=== PATIENT | female | born 1980 | race Caucasian/White ===

== ENCOUNTER 2019-07-10 13:32 | Emergency (ER) | payer MEDICAID ==
[~2019-07-10] VITALS: Ht 165.1 cm; Wt 71.7 kg
--- NOTE | 2019-07-10 13:40 | NUR ---
ERMD at bedside for MSE
--- NOTE | 2019-07-10 13:40 | NUR ---
pt ambulated with steady gait. A&Ox4. c/o SOB on and off x2 wks. has gotten worse last night per pt. wheezing noted upon auscultation, O2 sat at 95% on RA. speech clear and able to make needs known / follow commands. fall precautions implemented per protocol. Bed low, s/r upx2.
[2019-07-10] MEDS ORDERED: IPRATROPIUM BROMIDE 0.5 MG/2.5 ML NEBU NEB ONE ×3 (13:45→15:15)
[2019-07-10] MEDS ORDERED: predniSONE 10 MG TABLET PO ONE (13:45)
[2019-07-10] MEDS ORDERED: ALBUTEROL SULFATE 2.5 MG/3 ML NEBU NEB ONE ×3 (13:45→15:15)
[2019-07-10] MEDS ORDERED: predniSONE 10 MG TABLET ONE (13:46)
[2019-07-10] MEDS ORDERED: IPRATROPIUM BROMIDE 0.5 MG/2.5 ML NEBU ONE ×3 (13:47→15:04)
[2019-07-10] MEDS ORDERED: ALBUTEROL SULFATE 2.5 MG/3 ML NEBU ONE ×4 (13:47→15:04)
--- NOTE | 2019-07-10 14:53 | NUR ---
ra sat 93%, pt expressing sob. o2 via nc placed , sat improved to 97%.
--- NOTE | 2019-07-10 15:52 | NUR ---
Patient does not wish to proceed with medical care recommended by Dr. Kiara magallon). Patient given information related to possible complications, up to and including , which could occur as a result of leaving the hospital at this time. Patient verbalizes understanding of risks involved due to leaving against medical advice. Patient has signed AMA form.
[2019-07-10 16:10] VITALS: BP 129/89
== END 2019-07-10 16:00 | disposition left against medical advice (07) ==
LOC: ER 13:32
DX: J45.901 Unspecified asthma with (acute) exacerbation (principal); F17.200 Nicotine dependence, unspecified, uncomplicated; Z88.0 Allergy status to penicillin
CPT/HCPCS: 71045; 94640 ×2; 99285; J7512; A4663; J3590

== ENCOUNTER 2023-09-25 14:23 | Emergency (ER) | payer SELFPAY ==
[~2023-09-25] VITALS: Ht 162.6 cm; Wt 68.0 kg
[2023-09-25] MEDS ORDERED: IPRATROPIUM BROMIDE 0.5 MG/2.5 ML NEBU NEB ONE (14:45)
[2023-09-25] MEDS ORDERED: MAGNESIUM SULFATE 2 GM in IV DEXTROSE 5% 100 ML IV ONE (14:45)
[2023-09-25] MEDS ORDERED: ALBUTEROL SULFATE 2.5 MG/3 ML NEBU NEB ONE ×2 (14:45→16:45)
[2023-09-25] MEDS ORDERED: IV NORMAL SALINE 1000 ML BAG IV ONE (14:45)
[2023-09-25] MEDS ORDERED: methylPREDNISolone SOD SUCC 125 MG/2 ML VIAL IV ONE (14:45)
[2023-09-25] MEDS ORDERED: ALBUTEROL SULFATE 2.5 MG/3 ML NEBU ONE ×2 (14:48→16:42)
[2023-09-25] MEDS ORDERED: IPRATROPIUM BROMIDE 0.5 MG/2.5 ML NEBU ONE (14:48)
[2023-09-25 14:50] VITALS: O2SAT 96
[2023-09-25] MEDS ORDERED: MAGNESIUM SULFATE/D5W 200 ML ONE (15:01)
[2023-09-25] MEDS ORDERED: methylPREDNISolone SOD SUCC 125 MG/2 ML VIAL ONE (15:01)
[2023-09-25 15:12] LABS: BASOPHILS # (AUTO) 0.1 K/UL (0.0-0.2); BASOPHILS % (AUTO) 0.6 % (0.0-2.0); EOSINOPHILS # (AUTO) 0.1 K/uL (0.0-0.7); EOSINOPHILS % (AUTO) 0.9 % (0.0-7.0); HEMATOCRIT 38.2 % (31.2-41.9); HEMOGLOBIN 12.5 g/dL (10.9-14.3); LYMPHOCYTES # (AUTO) 0.3 K/uL (0.8-4.8); LYMPHOCYTES % (AUTO) 3.9 % (20.5-51.5); MEAN CORPUSCULAR HEMOGLOBIN 24.9 uug (24.7-32.8); MEAN CORPUSCULAR HGB CONC 33 g/dL (32.3-35.6); MEAN CORPUSCULAR VOLUME 76.1 fL (75.5-95.3); MONOCYTES # (AUTO) 0.5 K/uL (0.1-1.30); MONOCYTES % (AUTO) 5.8 % (0.0-11.0); NEUTROPHILS # (AUTO) 7.6 K/uL (1.8-8.9); NEUTROPHILS % (AUTO) 88.8 % (38.5-71.5); PLATELET COUNT (AUTO) 298 K/uL (179-408); RED BLOOD CELL COUNT(AUTO) 5.01 MIL/uL (3.63-4.92); RED CELL DISTRIBUTION WIDTH 16.5 % (12.3-17.7); WHITE BLOOD COUNT (AUTO) 8.6 K/uL (3.8-11.8)
[2023-09-25 15:14] LABS: CARBON DIOXIDE 24 mmol/L (21-32); CHLORIDE 102 mmol/L (98-107); CREATININE 0.9 mg/dL (0.6-1.3); DIFFERENTIAL COMMENT 1; GLUCOSE 96 mg/dL (74-106); POTASSIUM 3.4 mmol/L (3.5-5.1); SODIUM SERUM 139 mmol/L (136-145); UREA NITROGEN, BLOOD 5 mg/dL (7-18)
[2023-09-25] MEDS ORDERED: POTASSIUM BICARBONATE/CIT AC 25 MEQ TABLET.EFF PO ONE (15:30)
[2023-09-25 15:50] VITALS: O2SAT 99
[2023-09-25] MEDS ORDERED: POTASSIUM BICARBONATE/CIT AC 25 MEQ TABLET.EFF ONE (16:16)
[2023-09-25 16:40] VITALS: O2SAT 97
[2023-09-25] MEDS ORDERED: TERBUTALINE SULFATE 1 MG/1 ML VIAL SQ ONE (16:45)
[2023-09-25] MEDS ORDERED: ALBU18HF2 INH (16:47)
[2023-09-25] MEDS ORDERED: FLUT12AE20 INH (16:47)
[2023-09-25] MEDS ORDERED: TERBUTALINE SULFATE 1 MG/1 ML VIAL ONE (16:51)
[2023-09-25 17:40] VITALS: O2SAT 99
[2023-09-25 18:10] VITALS: BP 160/81; O2SAT 96
== END 2023-09-25 18:11 | disposition home or self-care (01) ==
LOC: ER 14:24
DX: J45.902 Unspecified asthma with status asthmaticus (principal); E87.6 Hypokalemia; F17.210 Nicotine dependence, cigarettes, uncomplicated; Z79.899 Other long term (current) drug therapy; Z20.822 Contact with and (suspected) exposure to COVID-19; Z60.2 Problems related to living alone; Z88.0 Allergy status to penicillin
CPT/HCPCS: 99285; 96365; 71045; 96366; 96375; 87426; 99406; 87804 ×2; 80048; 83735; 85025; 85379; 84484; 36415; 93005; 96372; 94644 ×2; J3475 ×2; J2930; J3105; J7040; 94760; A4606; A4663; J3590